=== PATIENT | male | born 1940 | race Caucasian/White ===

== ENCOUNTER 2017-03-09 05:32 | Inpatient (IN) | payer MEDICARE, BC ==
[2017-03-09] MEDS ORDERED: SUCCINYLCHOLINE CHLORIDE 100 MG/5 ML SYG IV (07:35)
[2017-03-09] MEDS ORDERED: PROPOFOL 20 ML (07:35)
[2017-03-09] MEDS ORDERED: CEFAZOLIN 1 GM INJ (07:36)
[2017-03-09] MEDS ORDERED: ROCURONIUM 50 MG INJ (07:36)
[2017-03-09] MEDS ORDERED: MIDAZOLAM 1 MG/ML 2 ML INJ (07:36)
[2017-03-09] MEDS ORDERED: LIDOCAINE 1% (MDV) 20 ML INJ (07:36)
[2017-03-09] MEDS ORDERED: EPHEDrine SULFATE 50 MG/5 ML SYG (08:00)
[2017-03-09] MEDS: CEFAZOLIN 2 GM/50 ML (PMX) 50 ML IVPB (08:15)
[2017-03-09] MEDS ORDERED: LACTATED RINGER'S 1,000 ML IV* (09:00)
[2017-03-09] MEDS ORDERED: DEXAMETHASONE 4 MG/ML 1 ML INJ (09:16)
[2017-03-09] MEDS ORDERED: ONDANSETRON 4 MG INJ ×2 (09:16→14:12)
[2017-03-09] MEDS: BUPIVACAINE 0.5%/EPI (SDV) 30 ML INJ (10:02)
[2017-03-09] MEDS: POLYMYXIN/BACITRACIN 1L IRRIG (10:03)
[2017-03-09] MEDS: THROMBIN 5000 UNIT VIAL (11:00)
[2017-03-09] MEDS ORDERED: NACL 0.9% 3 ML SYG IV (14:30)
[2017-03-09] MEDS ORDERED: NALOXONE (0.4 MG/ML) INJ IV (14:30)
[2017-03-09] MEDS ORDERED: PROCHLORPERAZINE 10 MG TAB PO (14:30)
[2017-03-09] MEDS ORDERED: ONDANSETRON 4 MG INJ IV (14:30)
[2017-03-09] MEDS ORDERED: LABETALOL HCL 20MG INJ (14:40)
[2017-03-09] MEDS ORDERED: HYDROmorphONE (0.2 MG/ML) 10ML SYG IV (15:00)
[2017-03-09] MEDS: LABETALOL HCL 20MG INJ IV (15:00)
[2017-03-09] MEDS: MEPERIDINE 25 MG INJ IV (15:04)
[2017-03-09] MEDS: HYDROmorphONE 0.2 MG/ML PCA IV (15:09)
[2017-03-09] MEDS: hydrALAzine 20 MG INJ IV (15:48)
[2017-03-09] MEDS ORDERED: ALBUTEROL/IPRATROPIUM (NEB) 3 ML AMP HHN (16:00)
[2017-03-09] MEDS: CEFAZOLIN 1 GM/50 ML (PMX) 50 ML IVPB ×2 (18:03→23:57)
[2017-03-09] MEDS: SALMETEROL/FLUTICASONE 250/50 INHA INH (21:00)
[2017-03-09] MEDS: RANITIDINE 150 MG TAB PO (22:03)
[2017-03-09] MEDS: DOCUSATE SODIUM 100 MG CAP PO (22:03)
[2017-03-09] MEDS: ATORVASTATIN 10 MG TAB PO (22:03)
[2017-03-10 05:28] LABS: HEMATOCRIT 30.3 % (42.0-52.0); HEMOGLOBIN 10.4 g/dl (14.0-18.0)
[2017-03-10] MEDS: CEFAZOLIN 1 GM/50 ML (PMX) 50 ML IVPB ×2 (05:32→12:55)
[2017-03-10 05:54] LABS: ANION GAP 11 (8-16); BLOOD UREA NITROGEN 19 mg/dl (7-20); CARBON DIOXIDE 23 mmol/L (21-31); CHLORIDE 108 mmol/L (97-110); CREATININE 1.14 mg/dl (0.61-1.24); GLUCOSE 111 mg/dl (70-220); POTASSIUM 3.9 mmol/L (3.5-5.1); SODIUM 138 mmol/L (135-144)
[2017-03-10] MEDS: SALMETEROL/FLUTICASONE 250/50 INHA INH ×2 (09:00→21:00)
[2017-03-10] MEDS: POLYETHYLENE GLYCOL 17 GM PACKET PO (09:00)
[2017-03-10] MEDS: DOCUSATE SODIUM 100 MG CAP PO ×2 (10:25→21:00)
[2017-03-10] MEDS ORDERED: HYDROmorphONE 0.5 MG/0.5 ML SYG IV (12:30)
[2017-03-10] MEDS: HYDROCODONE/APAP (5/325) TAB PO (14:55)
[2017-03-10] MEDS: RANITIDINE 150 MG TAB PO (21:00)
[2017-03-10] MEDS: ATORVASTATIN 10 MG TAB PO (21:00)
[2017-03-11] MEDS: DIGOXIN 500 MCG INJ IV (01:38)
[2017-03-11 01:43] LABS: POTASSIUM 4.3 mmol/L (3.5-5.1)
[2017-03-11] MEDS: DILTIAZEM 25 MG INJ IV (03:59)
[2017-03-11] MEDS: DILTIAZEM-D5W 125MG/125ML DRIP 125 ML IV (05:30)
[2017-03-11 05:42] LABS: ADD MAN DIFF? NO
[2017-03-11 05:48] LABS: BASOPHILS % 0.3 % (0.0-2.0); EOSINOPHILS % 0.3 % (0.0-7.0); HEMATOCRIT 33.7 % (42.0-52.0); HEMOGLOBIN 11.6 g/dl (14.0-18.0); LYMPHOCYTES # 1.1 10^3/ul (0.8-2.9); LYMPHOCYTES % 15.9 % (15.0-51.0); MEAN CORPUSCULAR HEMOGLOBIN 32.8 pg (29.0-33.0); MEAN CORPUSCULAR HGB CONC 34.4 g/dl (32.0-37.0); MEAN CORPUSCULAR VOLUME 95.2 fl (82.0-101.0); MEAN PLATELET VOLUME 11.3 fl (7.4-10.4); MONOCYTES % 13.9 % (0.0-11.0); NEUTROPHIL # 4.9 10^3/ul (1.6-7.5); PLATELET COUNT 117 10^3/UL (140-415); RED BLOOD COUNT 3.54 10^6/ul (4.70-6.10)
[2017-03-11 05:48] LABS: WHITE BLOOD COUNT 7.1 10^3/ul (4.8-10.8)
[2017-03-11 06:24] LABS: ALANINE AMINOTRANSFERASE 40 IU/L (13-69); ALKALINE PHOSPHATASE 51 IU/L (42-121); ANION GAP 11 (8-16); ASPARTATE AMINO TRANSFERASE 103 IU/L (15-46); BILIRUBIN,INDIRECT 1.2 mg/dl (0-1.1); BILIRUBIN,TOTAL 1.2 mg/dl (0.2-1.3); BLOOD UREA NITROGEN 17 mg/dl (7-20); CALCIUM 8.5 mg/dl (8.4-10.2); CARBON DIOXIDE 23 mmol/L (21-31); CHLORIDE 109 mmol/L (97-110); CREATININE 1.08 mg/dl (0.61-1.24); GLUCOSE 119 mg/dl (70-220); POTASSIUM 4.1 mmol/L (3.5-5.1); SODIUM 139 mmol/L (135-144)
[2017-03-11] MEDS: DOCUSATE SODIUM 100 MG CAP PO ×2 (08:37→20:26)
[2017-03-11] MEDS: SALMETEROL/FLUTICASONE 250/50 INHA INH (08:37)
[2017-03-11] MEDS: POLYETHYLENE GLYCOL 17 GM PACKET PO (08:38)
[2017-03-11] MEDS: HYDROCODONE/APAP (5/325) TAB PO (08:38)
[2017-03-11 09:30] LABS: TROPONIN-I 0.027 ng/ml (0.00-0.12)
[2017-03-11 09:33] LABS: CK INDEX 0.4; CK-MB 8.33 ng/ml (0.0-2.4); CREATINE KINASE 2378 IU/L (23-200)
[2017-03-11] MEDS: ATORVASTATIN 10 MG TAB PO (20:26)
[2017-03-11] MEDS: RANITIDINE 150 MG TAB PO (20:26)
[2017-03-12 06:19] LABS: ADD MAN DIFF? NO
[2017-03-12 06:49] LABS: WHITE BLOOD COUNT 5.5 10^3/ul (4.8-10.8)
[2017-03-12 06:49] LABS: BASOPHILS % 0.7 % (0.0-2.0); EOSINOPHILS # 0.2 10^3/ul (0.0-0.5); EOSINOPHILS % 3.8 % (0.0-7.0); HEMATOCRIT 33.7 % (42.0-52.0); HEMOGLOBIN 11.1 g/dl (14.0-18.0); LYMPHOCYTES # 1.4 10^3/ul (0.8-2.9); LYMPHOCYTES % 25.7 % (15.0-51.0); MEAN CORPUSCULAR HGB CONC 32.9 g/dl (32.0-37.0); MEAN CORPUSCULAR VOLUME 97.1 fl (82.0-101.0); MEAN PLATELET VOLUME 11.6 fl (7.4-10.4); MONOCYTE # 0.7 10^3/ul (0.3-0.9); MONOCYTES % 12.5 % (0.0-11.0); NEUTROPHIL # 3.2 10^3/ul (1.6-7.5); NEUTROPHILS % 56.9 % (39.0-77.0); PLATELET COUNT 110 10^3/UL (140-415); RED BLOOD COUNT 3.47 10^6/ul (4.70-6.10); RED CELL DISTRIBUTION WIDTH 12.8 % (11.5-14.5)
[2017-03-12 06:56] LABS: ALANINE AMINOTRANSFERASE 41 IU/L (13-69); ALBUMIN/GLOBULIN RATIO 1.07; ALKALINE PHOSPHATASE 52 IU/L (42-121); ANION GAP 14 (8-16); ASPARTATE AMINO TRANSFERASE 68 IU/L (15-46); BILIRUBIN,INDIRECT 0.8 mg/dl (0-1.1); BILIRUBIN,TOTAL 0.8 mg/dl (0.2-1.3); BLOOD UREA NITROGEN 20 mg/dl (7-20); CALCIUM 8.1 mg/dl (8.4-10.2); CARBON DIOXIDE 25 mmol/L (21-31); CHLORIDE 108 mmol/L (97-110); CREATININE 1.04 mg/dl (0.61-1.24); GLUCOSE 104 mg/dl (70-220); POTASSIUM 4.5 mmol/L (3.5-5.1); SODIUM 142 mmol/L (135-144); TOTAL PROTEIN 5.8 g/dl (6.1-8.1)
[2017-03-12] MEDS: POLYETHYLENE GLYCOL 17 GM PACKET PO (08:52)
[2017-03-12] MEDS: ACETAMINOPHEN 325 MG TAB PO (08:52)
[2017-03-12] MEDS: DOCUSATE SODIUM 100 MG CAP PO ×2 (08:52→20:56)
[2017-03-12] MEDS ORDERED: MAGNESIUM SULFATE 2 GM/50 ML 50 ML (09:19)
[2017-03-12] MEDS: MAGNESIUM SULFATE 2 GM/50 ML 50 ML IVPB (09:23)
[2017-03-12] MEDS: DILTIAZEM (CD) 240 MG CAP PO (09:35)
[2017-03-12] MEDS: ASPIRIN 81 MG TAB PO (14:05)
[2017-03-12] MEDS: RANITIDINE 150 MG TAB PO (20:56)
[2017-03-12] MEDS: ATORVASTATIN 10 MG TAB PO (20:56)
[2017-03-13] MEDS: DOCUSATE SODIUM 100 MG CAP PO ×2 (09:20→20:17)
[2017-03-13] MEDS: DILTIAZEM (CD) 240 MG CAP PO (09:21)
[2017-03-13] MEDS: POLYETHYLENE GLYCOL 17 GM PACKET PO (09:21)
[2017-03-13] MEDS: HYDROCODONE/APAP (5/325) TAB PO (09:21)
[2017-03-13] MEDS: ASPIRIN 81 MG TAB PO (09:24)
[2017-03-13] MEDS: BISACODYL 10 MG SUPP PR (17:13)
[2017-03-13] MEDS: NA PHOSPHATE/BIPHOS 133 ML ENEMA PR ×2 (18:28→20:18)
[2017-03-13] MEDS ORDERED: SENNA TAB PO (19:00)
[2017-03-13] MEDS: ATORVASTATIN 10 MG TAB PO (20:17)
[2017-03-13] MEDS: RANITIDINE 150 MG TAB PO (20:17)
[2017-03-14] MEDS: ASPIRIN 81 MG TAB PO (08:29)
[2017-03-14] MEDS: DOCUSATE SODIUM 100 MG CAP PO (08:29)
[2017-03-14] MEDS: POLYETHYLENE GLYCOL 17 GM PACKET PO (08:29)
[2017-03-14] MEDS: DILTIAZEM (CD) 240 MG CAP PO (08:36)
== END 2017-03-14 14:15 | disposition home or self-care (01) | DRG 455 ==
LOC: REC 05:32 → ICU 03-11 02:37 → MS1 18:33 → MS4 03-12 15:19
PROC: 0SG00AJ Fusion of Lumbar Vertebral Joint with Interbody Fusion Device, Posterior Approach, Anterior Column, Open Approach (ICD-10-PCS; principal; 2017-03-09 07:28)
PROC: 0SG00K1 Fusion of Lumbar Vertebral Joint with Nonautologous Tissue Substitute, Posterior Approach, Posterior Column, Open Approach (ICD-10-PCS; 2017-03-09 07:28)
PROC: 0SB20ZZ Excision of Lumbar Vertebral Disc, Open Approach (ICD-10-PCS; 2017-03-09 07:28)
DX: M48.062 Spinal stenosis, lumbar region with neurogenic claudication (principal); C61 Malignant neoplasm of prostate; I48.0 Paroxysmal atrial fibrillation; N40.1 Benign prostatic hyperplasia with lower urinary tract symptoms; M43.16 Spondylolisthesis, lumbar region; R41.0 Disorientation, unspecified; E78.00 Pure hypercholesterolemia, unspecified; R35.1 Nocturia; M54.16 Radiculopathy, lumbar region; K21.9 Gastro-esophageal reflux disease without esophagitis
CPT/HCPCS: 71045; 72110; 80048; 80053; 82550; 82553; 84132; 84484; 85014; 85018; 85025; 86850; 86900; 86901; 87081; 87086; 88304; 93005; 93306; 97110; 97116; 97163; 97164; 97530